=== PATIENT | female | born 1985 | race Caucasian/White ===

== ENCOUNTER → 2018-09-12 | Outpatient (CLI) | payer OTHER | LOC: COL.RAD 13:43 | DX: R10.31 Right lower quadrant pain (principal) ==

== ENCOUNTER → 2018-10-21 | Outpatient (CLI) | payer OTHER ==
[~2018-10-21] MED LIST: BIRTH CONTROL PILL; IBU-8800 MG PO; LORTAB 5/500 501 TAB PO; PENICILLIN250 MG PO; PRENATAL1 TA1 PO; SYNTHROID0.075 MG/T PO; ZOLOFT; ZOLOFT 100MG100 MG PO
== END ==
LOC: COL.RAD 14:33
DX: R10.2 Pelvic and perineal pain (principal); R10.31 Right lower quadrant pain
CPT/HCPCS: Q9967

== ENCOUNTER → 2019-09-19 | Outpatient (CLI) | payer OTHER | LOC: COL.LAB 15:35 | DX: N91.2 Amenorrhea, unspecified (principal) ==